=== PATIENT | male | born 1960 | race Caucasian/White ===

== ENCOUNTER 2025-09-23 19:55 | Inpatient (IN) | payer MEDICAID, MEDICARE ==
[~2025-09-23] VITALS: Ht 182.9 cm; Wt 63.5 kg
[2025-09-23] MEDS ORDERED: ATENOLOL 50 MG TABLET ONE (20:57)
[2025-09-23 21:02] LABS: PLATELET COUNT (AUTO) 198 K/uL (152-348); RED BLOOD CELL COUNT(AUTO) 4.58 MIL/uL (4.06-5.63); RED CELL DISTRIBUTION WIDTH 15.9 % (12.1-16.2); WHITE BLOOD COUNT (AUTO) 7.8 K/uL (3.6-10.2)
[2025-09-23] MEDS: ATENOLOL 50 MG TABLET PO ONE (21:11)
[2025-09-23 21:12] LABS: CREATININE 1.0 mg/dL (0.6-1.3); SODIUM SERUM 132 mmol/L (136-145); UREA NITROGEN, BLOOD 12 mg/dL (7-18)
[2025-09-23 21:18] LABS: ASPARTATE AMINOTRANSFERASE 23 U/L (15-37); TOTAL PROTEIN, SERUM 6.7 g/dL (6.4-8.2)
[2025-09-23 21:19] LABS: ETHANOL < 3 MG/DL (0-10)
[2025-09-23 21:35] LABS: *BILIRUBIN,URIN NEGATIVE (NEGATIVE); *BLOOD, URINE NEGATIVE (NEGATIVE); *CLARITY,URINE CLEAR (CLEAR); *COLOR,URINE LIGHT YELLOW (YELLOW); *KETONES,URINE NEGATIVE (NEGATIVE); *PROTEIN,URINE NEGATIVE (NEGATIVE); *UROBILINOGEN,URINE 0.2 E.U./dl (NORMAL); LEUKOCYTE ESTERASE ,URINE NEGATIVE (NEGATIVE); NITRITE, URINE NEGATIVE (NEGATIVE); UGLUCOSE 2+ (NEGATIVE)
[2025-09-23 21:44] LABS: SQUAMOUS EPITHELIAL CELL,UR NONE SEEN /HPF (NONE SEEN)
[2025-09-23 21:45] LABS: *AMPHETAMINE, URINE NEGATIVE (NEGATIVE); *BARBITURATE, URINE NEGATIVE (NEGATIVE); *BENZODIAZEPINE, URINE NEGATIVE (NEGATIVE); *CANNABINOID, URINE NEGATIVE (NEGATIVE); *COCCAINE, URINE NEGATIVE (NEGATIVE); *OPIATE, URINE NEGATIVE (NEGATIVE); *PHENCYCLIDINE SCREEN,URINE NEGATIVE (NEGATIVE); FENTANYL, URINE NEGATIVE (NEGATIVE)
[2025-09-23] MEDS ORDERED: DOCU100T2 PO (22:44)
[2025-09-23] MEDS ORDERED: AMIO200T72 PO (22:44)
[2025-09-23] MEDS ORDERED: ACET-2154 PO (22:44)
[2025-09-23] MEDS ORDERED: SENN-228 PO (22:44)
[2025-09-23] MEDS ORDERED: APIX5TAB PO (22:44)
[2025-09-23] MEDS ORDERED: OLAN-45 PO (22:44)
[2025-09-23] MEDS ORDERED: DIVA-158 PO (22:44)
[2025-09-23] MEDS ORDERED: MAGN400O6 PO (22:44)
[2025-09-23] MEDS ORDERED: HALO5TAB12 PO (22:44)
[2025-09-23] MEDS ORDERED: METO-357 PO (22:44)
[2025-09-23 23:20] VITALS: BP 133/70
[2025-09-24] MEDS ORDERED: TEMAZEPAM 7.5 MG CAPSULE PO PRN (00:15)
[2025-09-24] MEDS ORDERED: LORAZEPAM 1 MG TABLET PO PRN (00:15)
[2025-09-24] MEDS ORDERED: MAG HYDROX/AL HYDROX/SIMETH 30 ML LIQUID UDC PO PRN (00:15)
[2025-09-24] MEDS ORDERED: MAGNESIUM HYDROXIDE 30 ML LIQUID UDC PO PRN (00:15)
[2025-09-24 01:08] VITALS: BP 110/69; TEMP 97.6; O2SAT 96
[2025-09-24] MEDS: TEMAZEPAM 7.5 MG CAPSULE PO PRN (02:03)
[2025-09-24 08:18] VITALS: BP 104/63; TEMP 98; O2SAT 99
[2025-09-24] MEDS ORDERED: METO50TA16 PO (10:22)
[2025-09-24] MEDS ORDERED: DAPA10TA PO (10:29)
[2025-09-24] MEDS ORDERED: SENN8.6T19 PO (10:29)
[2025-09-24] MEDS ORDERED: MULT-213 PO (10:29)
[2025-09-24] MEDS: DOCUSATE SODIUM 100 MG CAPSULE PO SCH (12:12)
[2025-09-24] MEDS: AMIODARONE HCL 200 MG TABLET PO SCH (12:13)
[2025-09-24] MEDS: MULTIVIT, IRON, MIN NO. 8, FA TABLET PO SCH (12:13)
[2025-09-24] MEDS: DAPAGLIFLOZIN PROPANEDIOL 10 MG TABLET PO SCH (12:13)
[2025-09-24 15:45] VITALS: BP 115/71; TEMP 98; O2SAT 98
[2025-09-24] MEDS: APIXABAN 5 MG TABLET PO SCH (16:37)
[2025-09-24] MEDS: METOPROLOL TARTRATE 50 MG TABLET PO SCH (16:38)
[2025-09-24] MEDS ORDERED: DIVALPROEX 250 MG TABLET.DR PO SCH (17:00)
[2025-09-24] MEDS ORDERED: METOPROLOL SUCCINATE XL 50 MG TAB.SR.24H PO SCH (17:00)
[2025-09-24 20:05] VITALS: BP 134/79; TEMP 98.1; O2SAT 96
[2025-09-25 08:22] VITALS: BP 144/67; TEMP 98; O2SAT 98
[2025-09-25] MEDS: LORAZEPAM 1 MG TABLET PO PRN (13:43)
[2025-09-25 16:39] VITALS: BP 140/90; TEMP 98.1; O2SAT 96
[2025-09-25 20:22] VITALS: BP 98/66; TEMP 97.6; O2SAT 96
[2025-09-25] MEDS: MIRTAZAPINE 15 MG TABLET PO SCH (21:24)
[2025-09-26 08:47] VITALS: BP 115/51; TEMP 98; O2SAT 98
[2025-09-26 16:38] VITALS: BP 106/58; TEMP 98.1; O2SAT 96
[2025-09-26 20:06] VITALS: BP 91/53; TEMP 98; O2SAT 96
[2025-09-27 08:50] VITALS: BP 111/70; TEMP 98; O2SAT 98
[2025-09-27] MEDS ORDERED: diphenhydrAMINE 50 MG/1 ML VIAL IM STA (13:50)
[2025-09-27] MEDS ORDERED: LORAZEPAM 2 MG/1 ML VIAL IM STA (13:50)
[2025-09-27] MEDS ORDERED: HALOPERIDOL LACTATE 5 MG/1 ML VIAL IM STA ×2 (13:50→14:01)
[2025-09-27] MEDS: OLANZAPINE 10 MG VIAL IM STA (14:08)
[2025-09-27 16:35] VITALS: BP 119/77; TEMP 98.1; O2SAT 96
[2025-09-27 20:09] VITALS: BP 126/62; TEMP 98.2; O2SAT 98
[2025-09-27] MEDS: ACETAMINOPHEN 325 MG TABLET PO PRN (22:57)
[2025-09-28] MEDS: TEMAZEPAM 15 MG CAPSULE PO PRN (01:40)
[2025-09-28 07:57] VITALS: BP 100/62; TEMP 97.3; O2SAT 95
[2025-09-28] MEDS: BENZTROPINE MESYLATE 1 MG TABLET PO SCH (09:52)
[2025-09-28 16:43] VITALS: BP 105/74; TEMP 97.8; O2SAT 95
[2025-09-28 19:45] VITALS: BP 112/68; TEMP 97.9; O2SAT 95
[2025-09-29 09:38] VITALS: BP 90/58; TEMP 98; O2SAT 99
[2025-09-29 15:15] VITALS: BP 116/74; TEMP 98; O2SAT 99
[2025-09-29 20:24] VITALS: BP 112/80; TEMP 98.4; O2SAT 99
[2025-09-30 07:37] VITALS: BP 109/74; TEMP 98.2; O2SAT 99
[2025-09-30 15:42] VITALS: BP 112/85; TEMP 98; O2SAT 98
[2025-10-01 09:34] VITALS: BP 100/68; TEMP 98.4; O2SAT 99
[2025-10-01 15:15] VITALS: BP 104/72; TEMP 98; O2SAT 99
[2025-10-01 20:08] VITALS: BP 110/83; TEMP 98.2; O2SAT 96
[2025-10-02 08:46] VITALS: BP 119/71; TEMP 98.4; O2SAT 99
[2025-10-02 16:29] VITALS: BP 111/67; TEMP 98.4; O2SAT 99
[2025-10-02 20:06] VITALS: BP 97/64; TEMP 97.9; O2SAT 96
[2025-10-03 08:50] VITALS: BP 105/70; TEMP 98.4; O2SAT 99
[2025-10-03 16:17] VITALS: BP 95/67; TEMP 98.4; O2SAT 99
[2025-10-03 20:19] VITALS: BP 95/65; TEMP 98.5; O2SAT 97
[2025-10-04 08:41] VITALS: BP 109/66; TEMP 98.4; O2SAT 99
[2025-10-04 16:52] VITALS: BP 111/69; TEMP 98.4; O2SAT 99
[2025-10-05 09:38] VITALS: BP 110/75; TEMP 97.9; O2SAT 99
== END 2025-10-05 16:45 | DRG 750 ==
LOC: ER 19:55 → GPS 23:38
PROVIDERS: ADMIT Psychiatry & Neurology Psychiatry; ATTEND Student in an Organized Health Care Education/Training Program
DX: F20.9 Schizophrenia, unspecified (principal); G91.9 Hydrocephalus, unspecified; R62.7 Adult failure to thrive; I48.92 Unspecified atrial flutter; D68.59 Other primary thrombophilia; I70.0 Atherosclerosis of aorta; E11.9 Type 2 diabetes mellitus without complications; E05.90 Thyrotoxicosis, unspecified without thyrotoxic crisis or storm; I10 Essential (primary) hypertension; F32.A Depression, unspecified; I48.20 Chronic atrial fibrillation, unspecified; R26.2 Difficulty in walking, not elsewhere classified; Z68.1 Body mass index [BMI] 19.9 or less, adult; Z79.84 Long term (current) use of oral hypoglycemic drugs; F17.210 Nicotine dependence, cigarettes, uncomplicated
CPT/HCPCS: 36415; 71045; 84443; 84484; 85025; G0480; J2358